=== PATIENT | female | born 2000 | race Two or more races ===

== ENCOUNTER 2022-02-02 17:19 | Emergency (ER) | payer OTHER ==
[~2022-02-02] VITALS: Ht 165.1 cm; Wt 59.0 kg
[2022-02-02] MEDS ORDERED: [UNRECOGNIZED DRUG - OTHER] TP (20:09)
[2022-02-03] MEDS ORDERED: ONDANSETRON ODT4 MG SL (01:26)
[2022-02-03] MEDS ORDERED: PEPCID40 MG PO (01:26)
== END 2022-02-03 01:39 ==
LOC: EMR PED 17:19
DX: K29.70 Gastritis, unspecified, without bleeding (principal)